=== PATIENT | female | born 1955 | race Caucasian/White ===

== ENCOUNTER → 2023-10-23 09:26 | Outpatient (REF) | payer MEDICARE, OTHER, SELFPAY ==
[2023-10-23 12:10] LABS: % Eosinophils 2.4 % (0-6); % Immature Granulocytes 0.2 % (0-0.5); % Lymphocytes 20.3 % (20.5-51.1); % Monocytes 10.3 % (1.7-9.3); % Neutrophils 65.8 % (42.2-75.2); ALT (SGPT) 18 U/L (0-35); AST (SGOT) 24 U/L (14-36); Absolute Basophils 0.1 10^3/uL (0-0.2); Absolute Eosinophils 0.2 10^3/uL (0-0.7); Absolute Lymphocytes 1.3 10^3/uL (1.2-3.4); Absolute Monocytes 0.6 10^3/uL (0.1-0.6); Absolute Neutrophils 4.1 10^3/uL (1.4-6.5); Albumin 4.3 g/dl (3.5-5.0); Alkaline Phosphatase 108 U/L (38-126); Blood Urea Nitrogen 19 mg/dl (7-17); Calcium 9.9 mg/dl (8.4-10.2); Carbon Dioxide 26 mmol/L (22-30); Chloride 101 mmol/L (98-107); Glucose 93 mg/dl (70-99); HDL Cholesterol 75 mg/dl; Hematocrit 39.1 % (37.0-47.0); Hemoglobin 12.1 g/dL (12.0-16.0); LDL Cholesterol, Calculated 99 mg/dl; Mean Corp Hgb Conc. 30.9 g/dL (33.0-37.0); Mean Corpuscular Hgb 24.7 pg (27.0-31.0); Nucleated Red Blood Cells % 0 %; Platelet Count 330 10^3/uL (130-400); Potassium 4.5 mmol/L (3.5-5.1); Red Blood Cell Count 4.89 10^6/uL (4.20-5.40); Red Cell Dist. Width 15.5 % (11.5-14.5); Sodium 137 mmol/L (135-145); Total Bilirubin 0.5 mg/dl (0.2-1.3); Total Cholesterol 193 mg/dl (50-199); Total Protein 7.3 g/dl (6.3-8.2); Triglyceride 95 mg/dl (10-149); Very Low Density Lipoprotein 19 mg/dl (0-30); White Blood Cell Count 6.2 10^3/uL (4.8-10.8); eGFR > 60.00
[2023-10-23 12:25] LABS: TSH 2.55 uIU/ml (0.47-4.68)
== END ==
LOC: HWLAB 09:26
PROVIDERS: ATTENDING PHYSICIAN Nurse Practitioner
DX: M25.511 Pain in right shoulder (principal); N32.81 Overactive bladder; E03.9 Hypothyroidism, unspecified; E78.5 Hyperlipidemia, unspecified; E66.01 Morbid (severe) obesity due to excess calories
CPT/HCPCS: 36415; 73030; 80053; 80061; 84443; 85025

== ENCOUNTER → 2023-11-05 10:42 | Outpatient (REF) | payer MEDICARE, OTHER, SELFPAY | LOC: PAVMRI 10:42 | PROVIDERS: ATTENDING PHYSICIAN Nurse Practitioner | DX: M25.511 Pain in right shoulder (principal) | CPT/HCPCS: 73221 ==

== ENCOUNTER → 2023-11-22 09:13 | Outpatient (REF) | payer MEDICARE, OTHER, SELFPAY | LOC: HWRAD 09:13 | PROVIDERS: ATTENDING PHYSICIAN Specialist; FAMILY PHYSICIAN Nurse Practitioner | DX: M25.511 Pain in right shoulder (principal); Z01.818 Encounter for other preprocedural examination | CPT/HCPCS: 73200 ==

== ENCOUNTER 2023-12-25 06:06 | Inpatient (IN) | payer MEDICARE, OTHER, SELFPAY ==
--- NOTE | 2023-11-21 11:08 | CM ---
Addendum entered by JAIR Reyes 12/11/23 14:28:
Patient called and now prefers [facility] home as first choice for SNF then [facility].
Original Note:
Patient is scheduled for an elective R Reverse TSA on 12/25/23. Spoke with patient prior to surgery. Patient has had multiple orthopedic surgeries at . Reintroduced role of Orthopedic Navigator. Patient reports that she lives with a friend in a two
story home. There is an elevator lift to enter and a flight of steps to the second floor. There is no first floor bathroom. She currently functions independently and uses a rollator. She is recovering from an ankle fracture which occurred in April
2022. She uses her UEs to stand up from chairs, her bed, etc. She also has a commode, raised toilet seat, shower seat, toilet rails and a hip kit. She has been in [facility] for rehab and has had services through [facility]. PCP is Cat Gilbert.
Discussed orthopedic program and post surgical plans. Reviewed anticipated length of stay and assistance that she may need at discharge. Patient states that she has no one who can help her. Discussed possible need for SNF and reviewed Medicare
guidelines. If SNF is needed she states that she would like to go to [facility] or [facility].
Patient will complete online education.
Plan: Orthopedic Navigator will be involved in the care of patient after surgery and will reassess discharge needs at that time.
[2023-12-07 08:16] VITALS: BMI 45.0
[2023-12-07 09:36] LABS: Hematocrit 38.4 % (37.0-47.0); Hemoglobin 11.8 g/dL (12.0-16.0); Mean Corp Hgb Conc. 30.7 g/dL (33.0-37.0); Mean Corpuscular Hgb 24.9 pg (27.0-31.0); Mean Corpuscular Volume 81.2 fL (81.0-99.0); Mean Platelet Volume 9.6 fL (7.4-10.4); Platelet Count 341 10^3/uL (130-400); Red Blood Cell Count 4.73 10^6/uL (4.20-5.40); Red Cell Dist. Width 14.9 % (11.5-14.5)
[2023-12-07 10:14] LABS: ALT (SGPT) 16 U/L (0-35); AST (SGOT) 23 U/L (14-36); Albumin 3.8 g/dl (3.5-5.0); Alkaline Phosphatase 93 U/L (38-126); Blood Urea Nitrogen 19 mg/dl (7-17); Calcium 9.8 mg/dl (8.4-10.2); Carbon Dioxide 25 mmol/L (22-30); Chloride 104 mmol/L (98-107); Estimated Creatinine Clearance 124 ml/min; Glucose 84 mg/dl (70-99); Potassium 4.7 mmol/L (3.5-5.1); Sodium 137 mmol/L (135-145); Total Bilirubin 0.5 mg/dl (0.2-1.3); Total Protein 6.8 g/dl (6.3-8.2); eGFR > 60.00
[2023-12-07 11:59] LABS: Glycohemoglobin (HgbA1c) 5.6 % (4.0-5.6)
[2023-12-07 14:39] LABS: Vitamin D, 25-OH*** 33.5 ng/mL (30-80)
[2023-12-10 08:37] VITALS: BMI 45.0
[2023-12-25] VITALS (17 sets, daily range): BP systolic 106–183; BP diastolic 64–100; PULSE 67; BMI 45.0
[2023-12-25] MEDS: TYLENOL 1000 MG PO (06:42)
[2023-12-25] MEDS: CELEBREX 200 MG PO (06:42)
[2023-12-25] MEDS: NORMOSOL-R 1000 IV (10:05)
[2023-12-25] MEDS: LIPITOR 10 MG PO (13:31)
[2023-12-25] MEDS: SYNTHROID 50 MCG PO (13:31)
[2023-12-25] MEDS: PROTONIX 40 MG PO (13:31)
[2023-12-25] MEDS: TYLENOL 650 MG PO ×4 (13:32→23:11)
[2023-12-25] MEDS: ULTRAM PO ×2 (13:32→19:40)
--- NOTE | 2023-12-25 15:59 | PTCARENOTE ---
Pt received into room 2109, pt not complaining of any pain at this time. Difficulty moving R hand after receiving spinal block. R radial pulse intact. Pt making needs known. Assessment documented on worklist. Admission completed. Call kelly within
reach. Pt makes needs known.
[2023-12-25] MEDS: ASPIRIN 325 MG PO (16:57)
[2023-12-25] MEDS: LEXAPRO 20 MG PO (16:57)
[2023-12-25] MEDS: ANCEF 5 IV ×2 (16:57→23:11)
[2023-12-25] MEDS: BACTROBAN 2% OINTMENT 1 APPLIC NASAL (19:49)
[2023-12-25] MEDS: SENOKOT 17.1999999999999993 MG PO (19:49)
[2023-12-25] MEDS: DECADRON 4 MG PO (19:49)
[2023-12-25] MEDS: COLACE 100 MG PO (19:49)
[2023-12-25] MEDS: BUSPAR 7.5 MG PO (19:49)
[2023-12-25] MEDS: DITROPAN 5 MG PO (19:50)
[2023-12-25] MEDS: TORADOL 15 MG IV (19:50)
[2023-12-25] MEDS: NEURONTIN 300 MG PO (21:31)
[2023-12-25] MEDS: ULTRAM 50 MG PO (21:31)
[2023-12-25] MEDS: MELATONIN 5 MG PO (21:33)
[2023-12-26] VITALS (8 sets, daily range): BP systolic 113–140; BP diastolic 57–90; PULSE 73; O2SAT 97
--- NOTE | 2023-12-26 03:38 | DOWNTIME ---
There was a [employer] Client Analytical Lab Analyst Downtime on 11/20/2023 from 0100 to 11/21/2023 at 0300. Downtime documentation of patient's care, including medication administrations, has been reconciled in the electronic record per guidelines. Refer to the
patient's paper chart under the miscellaneous tab to see printed paper medication records and downtime forms.
[2023-12-26] MEDS: TYLENOL PO (04:58)
[2023-12-26] MEDS: SYNTHROID 50 MCG PO (06:06)
--- NOTE | 2023-12-26 08:23 | CM ---
Reviewed chart and held rounds with OT and nursing. Patient admitted as planned for elective R Reverse TSA. Met with patient at bedside. Confirmed information previously obtained for case management assessment and discussed discharge plans. patient
continues to state that she needs to go to a SNF. Explained that we will see how she does in therapy today and further discuss discharge plans. She continues to select [facility] or [facility] if she needs SNF.
Referral and completed PASRR were sent to [facility] and [facility]. Will await response with their ability to accept patient.
[2023-12-26] MEDS: SENOKOT 17.1999999999999993 MG PO ×2 (08:41→20:09)
[2023-12-26] MEDS: PROTONIX 40 MG PO (08:41)
[2023-12-26] MEDS: BACTROBAN 2% OINTMENT 1 APPLIC NASAL ×2 (08:41→22:46)
[2023-12-26] MEDS: ASPIRIN 325 MG PO (08:41)
[2023-12-26] MEDS: DECADRON 4 MG PO ×2 (08:42→20:08)
[2023-12-26] MEDS: COLACE 100 MG PO ×2 (08:42→20:08)
[2023-12-26] MEDS: MOBIC 15 MG PO (08:42)
[2023-12-26] MEDS: TYLENOL 650 MG PO ×5 (08:42→23:50)
[2023-12-26] MEDS: TORADOL 15 MG IV ×2 (08:43→20:09)
[2023-12-26] MEDS: LIPITOR 10 MG PO (08:43)
[2023-12-26] MEDS: COZAAR PO (08:43)
[2023-12-26] MEDS: BUSPAR 7.5 MG PO ×2 (08:44→20:08)
[2023-12-26] MEDS: ULTRAM 50 MG PO ×3 (08:44→22:09)
[2023-12-26] MEDS: DITROPAN 5 MG PO ×2 (08:44→20:09)
[2023-12-26] MEDS: FEOSOL 325 MG PO (08:44)
[2023-12-26] MEDS: ULTRAM PO (12:23)
[2023-12-26] MEDS: LEXAPRO 20 MG PO (17:39)
[2023-12-26] MEDS: NEURONTIN 300 MG PO (22:09)
[2023-12-26] MEDS: DULCOLAX 10 MG RECTAL (22:31)
[2023-12-26] MEDS: BACTROBAN 2% OINTMENT NASAL ×2 (22:31→22:46)
--- NOTE | 2023-12-27 | PTCARENOTE ---
Dulcolax suppository given with positive results. pt reported feeling like she 'still needs to explode', however, gas pains have resolved. assessment ongoing.
[2023-12-27] MEDS: TYLENOL PO (05:00)
[2023-12-27] MEDS: SYNTHROID 50 MCG PO (05:44)
[2023-12-27 07:05] VITALS: BP 152/89
--- NOTE | 2023-12-27 08:36 | CM ---
Addendum entered by Rosa Turner 12/27/23 11:31:
Spoke with Tiburcio at [facility] ([phone]). He confirms that they will have a bed for patient tomorrow and requested a call tomorrow morning.
Addendum entered by Rosa Turner 12/27/23 10:08:
Spoke with Haley at [facility]. She said she won't know until tomorrow morning whether she can accept patient. Navigator to follow up with Haley in AM. Patient updated.
Original Note:
Reviewed chart and held rounds with PT, OT and nursing. Met with patient at bedside. Discussed discharge plans. Patient continues to state that she needs to go to a SNF. She continues to select [facility] or [facility] Discussed wheel chair van
transport and patient is agreeable to paying related charges.
[facility] is able to offer a bed. Message was sent to [facility] to see if they can accept patient.
[2023-12-27] MEDS: ULTRAM 50 MG PO ×4 (09:14→22:22)
[2023-12-27] MEDS: COZAAR 50 MG PO (09:14)
[2023-12-27] MEDS: SENOKOT 17.1999999999999993 MG PO (09:14)
[2023-12-27] MEDS: COLACE 100 MG PO (09:14)
[2023-12-27] MEDS: PROTONIX 40 MG PO (09:14)
[2023-12-27] MEDS: TYLENOL 650 MG PO ×4 (09:14→19:56)
[2023-12-27] MEDS: ASPIRIN 325 MG PO (09:15)
[2023-12-27] MEDS: FEOSOL 325 MG PO (09:15)
[2023-12-27] MEDS: DECADRON 4 MG PO ×2 (09:15→19:56)
[2023-12-27] MEDS: MOBIC 15 MG PO (09:15)
[2023-12-27] MEDS: LIPITOR 10 MG PO (09:15)
[2023-12-27] MEDS: BUSPAR 7.5 MG PO ×2 (09:15→19:56)
[2023-12-27] MEDS: DITROPAN 5 MG PO ×2 (09:16→19:56)
[2023-12-27] MEDS: ROXICODONE 10 MG PO ×2 (11:41→21:16)
--- NOTE | 2023-12-27 13:07 | W.PN.ORTHO ---
Today's Communication / Plan
-
d/c am if stable
Assessment
.
Distal Motor Intact: Yes
Dressing:
Clean, dry and intact.
Plan
.
Surgery / Date: R Karie Burger 12/25/23
DVT Prophylaxis: Aspirin
Activity:
Out of bed.
PT/OT
Discharge Plan: SNF
Subjective
.
.:
Patient resting comfortably.
Vital Signs and Labs
.
Vital Signs and Labs:
Lab Results
12/07/23 08:13
12/07/23 08:13
Temp Pulse Resp BP Pulse Ox
98.3 F 68 17 152/89 96
12/27/23 07:05 12/27/23 07:05 12/27/23 07:05 12/27/23 07:05 12/27/23 07:05
Non-invasive Hgb result: 12.9
Physical Exam
-
HEENT: No pallor, cyanosis, or jaundice. Throat clear.
NECK: Supple. No JVD.
RESPIRATORY: Lungs clear to auscultation.
CVS: S1, S2 normal. RRR.� No murmur, rub or gallop.
ABDOMEN: Soft, non-tender. No distension. BS+/normal.
EXTREMITIES: strength equal, no calf pain with palpation
HEAD OF DRAMA: AOx3. No focal deficits. hose turner grossly intact
[2023-12-27 15:00] VITALS: BP 138/78
[2023-12-27] MEDS: LEXAPRO 20 MG PO (17:58)
[2023-12-27] MEDS: NEURONTIN 300 MG PO (21:16)
[2023-12-27 23:31] VITALS: BP 115/83
[2023-12-28] MEDS: TYLENOL PO (01:27)
[2023-12-28] MEDS: TYLENOL 650 MG PO ×3 (05:00→12:58)
[2023-12-28] MEDS: SYNTHROID 50 MCG PO (05:21)
[2023-12-28 07:17] VITALS: BP 142/94
[2023-12-28] MEDS: LIPITOR 10 MG PO (08:48)
[2023-12-28] MEDS: MOBIC 15 MG PO (08:48)
[2023-12-28] MEDS: DITROPAN 5 MG PO (08:49)
[2023-12-28] MEDS: COZAAR 50 MG PO (08:49)
[2023-12-28] MEDS: ULTRAM 50 MG PO ×2 (08:49→12:59)
[2023-12-28] MEDS: BUSPAR 7.5 MG PO (08:49)
[2023-12-28] MEDS: DECADRON 4 MG PO (08:49)
[2023-12-28] MEDS: PROTONIX 40 MG PO (08:49)
[2023-12-28] MEDS: ASPIRIN 325 MG PO (08:50)
[2023-12-28] MEDS: FEOSOL 325 MG PO (08:50)
--- NOTE | 2023-12-28 09:30 | CM ---
Addendum entered by JAIR Reyes 12/28/23 12:11:
CoVID tested requested by SNF prior to d/c. updated patient ambulance company sending w/c van at 1500 . also updated SNF admissions with new oyster picker time.
Addendum entered by JAIR Reyes 12/28/23 11:00:
confirm w/c van ride set up for 1630. Updated Haley at [facility] with time of oyster picker. Also updated patient who was on phone with Acute care to use credit card to pay.
Original Note:
Reviewed chart and held rounds with PT, OT and nursing. Met with patient at bedside. Discussed discharge plans. Patient continues to state that she needs to go to a SNF. She continues to select [facility] or [facility]. Discussed wheel chair van
transport and patient is agreeable to paying related charges. Call received from Haley in admissions at [facility] that she has bed for patient. SHe can accept her at 1500 today.
Met with patient who is agreeable to plan. She will call her friends and family to notify. She knows she has to call w/c [employer] to pay with credit card for the transport.
Navigator called [facility] and left VM for windows systems administrator that bed not needed.
[facility] : report [phone], FAX [phone].
--- NOTE | 2023-12-28 10:42 | W.PN.ORTHO ---
Today's Communication / Plan
-
d/c
Assessment
.
Distal Motor Intact: Yes
Dressing:
Clean, dry and intact.
Plan
.
Surgery / Date: R Karie Burger 12/25/23
DVT Prophylaxis: Aspirin
Activity:
Out of bed.
PT/OT
Discharge Plan: SNF
Subjective
.
.:
Patient resting comfortably.
Vital Signs and Labs
.
Vital Signs and Labs:
Lab Results
12/07/23 08:13
12/07/23 08:13
Temp Pulse Resp BP Pulse Ox
98.9 F 77 17 142/94 96
12/28/23 07:17 12/28/23 07:17 12/28/23 07:17 12/28/23 07:17 12/28/23 07:17
Non-invasive Hgb result: 12
Physical Exam
-
HEENT: No pallor, cyanosis, or jaundice. Throat clear.
NECK: Supple. No JVD.
RESPIRATORY: Lungs clear to auscultation.
CVS: S1, S2 normal. RRR.� No murmur, rub or gallop.
ABDOMEN: Soft, non-tender. No distension. BS+/normal.
EXTREMITIES: strength equal, no calf pain with palpation
LIBRARY CIRCULATION DEPARTMENT CHIEF: AOx3. No focal deficits. shift stacker grossly intact
--- NOTE | 2023-12-28 10:45 | W.DS.TRANS ---
DC Summary - Medical Historian
-
Discharge Instructions:
Sleep Apnea Risk Intermediate
Discharge Diagnosis/Procedures R Reverse TSA Dr. Burger 12/25/23
Diet As tolerated
Activity No strenuous activity
Driving Restrictions No driving
Instructions:
Stand-Alone Forms: Total Shoulder Replacement D/C
Changes to Home Medications: Yes
Discharge Medications:
DC Medications w/original date entered in [employer]
levothyroxine 50 mcg tablet 50 mcg PO DAILY Thyroid 04/28/21
simvastatin 20 mg tablet 20 mg PO DAILY High cholesterol 04/28/21
escitalopram oxalate 20 mg tablet 20 mg PO QPM Mental Health/Anxiety 11/01/22
omeprazole 40 mg capsule,delayed release 40 mg PO DAILY Gastrointestinal Issue 11/01/22
losartan 50 mg tablet 50 mg PO DAILY Blood Pressure 04/18/23
oxybutynin chloride 10 mg tablet,extended release 24 hr 10 mg PO QPM Urinary Issue 04/18/23
buspirone 7.5 mg tablet 7.5 mg PO BID Depression 12/04/23
mupirocin 2 % topical ointment 1 applic topical BID infection prevention #1 tube 12/07/23
ferrous sulfate 325 mg (65 mg iron) tablet,delayed release 325 mg PO DAILY Supplement 12/25/23
Saccharomyces boulardii 250 mg capsule (Florastor) 250 mg PO BID #1 cap 12/26/23
acetaminophen 325 mg capsule (Tylenol) 650 mg (2 x 325 mg) PO QID #2 caps 12/26/23
acetaminophen 500 mg tablet (Pain Relief Extra Strength (acetaminophen)) 1,000 mg (2 x 500 mg) PO QID pain #0 tabs 12/26/23
aspirin 325 mg tablet 325 mg PO DAILY blood clot prevention #1 tab 12/26/23
dexamethasone 4 mg tablet 4 mg PO BID inflammation #6 tabs 12/26/23
docusate sodium 100 mg capsule (Colace) 100 mg PO BID stool softner #1 cap 12/26/23
doxycycline hyclate 100 mg capsule 100 mg PO BID infection prevention #10 caps 12/26/23
ergocalciferol (vitamin D2) 50 mcg (2,000 unit) capsule 50 mcg PO WEEKLY vit D deficiency #20 caps 12/26/23
gabapentin 300 mg capsule 300 mg PO HS sleep/pain #10 caps 12/26/23
magnesium hydroxide 400 mg/5 mL oral suspension (Milk of Magnesia) 30 ml PO HS PRN Constipation #1 mL 12/26/23
meloxicam 15 mg tablet 15 mg PO DAILY anti-inflammatory #14 tabs 12/26/23
oxycodone 5 mg tablet 5 mg PO Q6H PRN 1 tab moderate pain, 2 tabs severe pain #30 tabs 12/26/23
sennosides 8.6 mg tablet (Senokot) 17.2 mg (2 x 8.6 mg) PO BID laxative #2 tabs 12/26/23
Home Medication Changes
dexamethasone 4 mg tablet 4 mg PO BID inflammation #6 tabs 12/26/23�
docusate sodium 100 mg capsule (Colace) 100 mg PO BID stool softner #1 cap 12/26/23�
doxycycline hyclate 100 mg capsule 100 mg PO BID infection prevention #10 caps 12/26/23�
ergocalciferol (vitamin D2) 50 mcg (2,000 unit) capsule 50 mcg PO WEEKLY vit D deficiency #20 caps 12/26/23�
gabapentin 300 mg capsule 300 mg PO HS sleep/pain #10 caps 12/26/23�
magnesium hydroxide 400 mg/5 mL oral suspension (Milk of Magnesia) 30 ml PO HS PRN Constipation #1 mL 12/26/23�
meloxicam 15 mg tablet 15 mg PO DAILY anti-inflammatory #14 tabs 12/26/23�
oxycodone 5 mg tablet 5 mg PO Q6H PRN 1 tab moderate pain, 2 tabs severe pain #30 tabs 12/26/23�
Pending Results: No
[2023-12-28 13:01] VITALS: BP 149/77; PULSE 64; O2SAT 97
[2023-12-28 13:07] LABS: COVID-19 Antigen Negative (Negative)
[2023-12-28 14:28] VITALS: BP 138/86
== END 2023-12-28 15:00 | DRG 483 ==
LOC: 2 SOUTH 06:06
PROVIDERS: Physician Assistant Medical; ADMITTING PHYSICIAN Specialist; FAMILY PHYSICIAN Nurse Practitioner
PROC: 0RRJ00Z Replacement of Right Shoulder Joint with Reverse Ball and Socket Synthetic Substitute, Open Approach (ICD-10-PCS; 2023-12-25)
PROC: 0LS30ZZ Reposition Right Upper Arm Tendon, Open Approach (ICD-10-PCS; 2023-12-25)
DX: M19.011 Primary osteoarthritis, right shoulder (principal); Z68.41 Body mass index [BMI] 40.0-44.9, adult; I10 Essential (primary) hypertension; E78.5 Hyperlipidemia, unspecified; G43.909 Migraine, unspecified, not intractable, without status migrainosus; I87.2 Venous insufficiency (chronic) (peripheral); E03.9 Hypothyroidism, unspecified; N32.81 Overactive bladder; F32.A Depression, unspecified; F41.9 Anxiety disorder, unspecified; E66.01 Morbid (severe) obesity due to excess calories; Z96.641 Presence of right artificial hip joint; Z96.653 Presence of artificial knee joint, bilateral; Z87.891 Personal history of nicotine dependence; Z79.890 Hormone replacement therapy; Z11.52 Encounter for screening for COVID-19
CPT/HCPCS: 36415; 73020; 80053; 82306; 83036; 85027; 86850; 86900; 86901; 87070; 87811; 93005; 97110; 97116; 97162; 97167; 97535

== ENCOUNTER → 2024-04-08 06:40 | Outpatient (REF) | payer MEDICARE, OTHER, SELFPAY ==
[2024-04-08 09:09] LABS: Blood Urea Nitrogen 23 mg/dl (7-17); Calcium 9.9 mg/dl (8.4-10.2); Carbon Dioxide 29 mmol/L (22-30); Chloride 101 mmol/L (98-107); Glucose 99 mg/dl (70-99); Potassium 4.6 mmol/L (3.5-5.1); Sodium 141 mmol/L (135-145); eGFR > 60.00
== END ==
LOC: HWRCS 06:40
PROVIDERS: ATTENDING PHYSICIAN Hospitalist
DX: R60.0 Localized edema (principal)
CPT/HCPCS: 36415; 80048; 93306

== ENCOUNTER 2024-04-28 15:54 | Emergency (ER) | payer MEDICARE, OTHER, SELFPAY ==
[2024-04-28 15:59] VITALS: BP 150/99
[2024-04-28] MEDS: CARDIZEM 10 MG IV (16:41)
[2024-04-28] MEDS: NSS 1000 IV (16:41)
[2024-04-28 16:47] LABS: % Basophils 0.9 % (0-2); % Eosinophils 2.4 % (0-6); % Immature Granulocytes 0.3 % (0-0.5); % Lymphocytes 21.7 % (20.5-51.1); % Monocytes 11.6 % (1.7-9.3); % Neutrophils 63.1 % (42.2-75.2); Absolute Basophils 0.1 10^3/uL (0-0.2); Absolute Eosinophils 0.2 10^3/uL (0-0.7); Absolute Lymphocytes 1.6 10^3/uL (1.2-3.4); Absolute Monocytes 0.9 10^3/uL (0.1-0.6); Absolute Neutrophils 4.7 10^3/uL (1.4-6.5); Hematocrit 38.1 % (37.0-47.0); Hemoglobin 12.1 g/dL (12.0-16.0); Mean Corp Hgb Conc. 31.8 g/dL (33.0-37.0); Mean Corpuscular Hgb 25.6 pg (27.0-31.0); Mean Corpuscular Volume 80.7 fL (81.0-99.0); Mean Platelet Volume 9.3 fL (7.4-10.4); Nucleated Red Blood Cells % 0 %; Platelet Count 311 10^3/uL (130-400); Red Blood Cell Count 4.72 10^6/uL (4.20-5.40); Red Cell Dist. Width 13.8 % (11.5-14.5); White Blood Cell Count 7.5 10^3/uL (4.8-10.8)
--- NOTE | 2024-04-28 17:06 | ED.GENMED ---
Addendum entered and electronically signed by Suma Jones PA-C 04/29/24 10:13:
04/29/2024
I was notified that patient's pharmacy no longer was serving her and that she would need her prescription sent to new pharmacy. I called patient to clarify and she states that she actually uses [facility] on [address] [place] [address]. I did send these
prescriptions to this new pharmacy. Patient states that she has been using this pharmacy for many years. Did call the pharmacy and confirmed that the prescriptions were sent and accepted. Patient states that she will be picking up her
prescriptions today.
Original Note:
History of Present Illness
General
Chief Complaint: Heart Rate Problem
Source: patient
Exam Limitations: none
Time Seen by Provider: 04/28/24 16:28
Nursing documentation reviewed up to this point in time: agreed with
History of Present Illness
History of Present Illness:
69-year-old female with past medical history of hypertension, hyperlipidemia, hypothyroidism, obesity who presents to the emergency department for evaluation of atrial fibrillation. Patient has had multiple orthopedic surgeries recently most recent
was shoulder surgery in December. She was referred to game programmer/diet specialist by orthopedics for help with weight loss. Today she went for a full physical exam and was found to be tachycardic and an EKG showed atrial fibrillation. She has no
history of atrial fibrillation or any other cardiac issues of which she is aware. She says she has never seen a l d rn. Her main symptom is shortness of breath which she says has been ongoing for the past few months and is relatively mild
and mainly with exertion. She has not noticed any chest pain. She has not noticed any palpitations. She denies any dizziness. She has had some swelling in the legs which she says was symmetric and was treated by her primary care physician with
Lasix and seems to have improved greatly. She denies any other complaints. She has no history of DVT/PE.
Past History
Past History
ED Past Medical History: Other (knee problems )
Social History
Tobacco: Non-smoker
Personal:
Review of Systems
Review of Systems
All Other Systems: ROS reviewed and negative except as documented in HPI and ROS
Constitutional: Denies fever or chills
Respiratory: Reports trouble breathing; Denies cough
Cardiac: Denies chest pain, palpitations or syncope
ABD/GI: Denies abdominal pain, nausea or vomiting
: Denies flank pain
Musculoskeletal: Reports edema; Denies neck pain or back pain
Neurological: Denies dizzy or headache
Phy Exam
Physical Exam
Physical Exam:
General: Awake, alert, oriented x3; no acute distress
Head: Normocephalic, atraumatic
Eyes: Conjunctiva normal, sclera anicteric
Throat: Airway intact, handling secretions
Neck: Trachea midline, supple without meningismus
Lungs: Clear to auscultation bilaterally, no wheezing, rales, rhonchi
Heart: Tachycardia with irregularly irregular rhythm, no murmurs, gallops, or rubs appreciated
Abd: Soft, non distended, nontender
Neuro: No gross deficits
Extremities: Mild edema bilateral lower extremities, no calf tenderness, no skin changes in the lower extremities, equal pulses all extremities
Scores
[id number] Score for Afib Stroke Risk
Age in Years (65=0, 65-74=1, >/=75=2): 65-74
Sex (Female=+1): Female
Congestive Heart Failure History (Yes=+1): No
Hypertension History (Yes=+1): Yes
Stroke/TIA/Thromboembolism History (Yes=+2): No
Vascular Disease History (Yes=+1): No
Diabetes Mellitus (Yes=+1): No
Score: 3
Anticoagulation Recommendations: Recommend anticoagulation (as validated in nonvalvular fib)
Heart Failure Risk
Heart Failure Risk Score: Not Applicable
Heart Score for Chest Pain Patients
STEMI patient?: Not applicable
Withdrawal Assessment of Alcohol
Withdrawal Assessment Completed?: Not applicable
Course
Orders/Labs/Results
Orders:
Orders
04/28/24 15:57
ECG [Electrocardiogram (*1)] Urgent
Reason for Study: Atrial Fibrillation
EKG- Treatment ONCE
04/28/24 16:06
Electrocardiogram (*1) Urgent
Reason for Study: Chest Pain
EKG- Treatment ONCE
04/28/24 16:32
0.9% Sodium Chloride 1000 ml [Nss] 1,000 ml IV BOLUS
Diltiazem HCl [Cardizem] 10 mg IV NOW STA
04/28/24 16:34
Complete Blood Count/With Diff Urgent
Comprehensive Metabolic Panel Urgent
TSH Reflex To Free T4 Urgent
04/28/24 16:55
CT Chest Pe Study Urgent
Comment:
Reason For Exam: SOB, tachycardia, recent surgery
Metoprolol Xl [Toprol Xl] 25 mg PO NOW STA
04/28/24 21:21
Metoprolol Xl [Toprol Xl] 25 mg PO NOW STA
04/28/24 21:22
Apixaban [Eliquis] 5 mg PO ONCE ONE
04/29/24 21:30
Apixaban [Eliquis] 5 mg PO ONCE ONE
Abnormal Lab Results
04/28/24
16:34
MCV 80.7 L fL
(81.0-99.0)
MCH 25.6 L pg
(27.0-31.0)
MCHC 31.8 L g/dL
(33.0-37.0)
Absolute Monos (auto) 0.9 H 10^3/uL
(0.1-0.6)
Monocytes % 11.6 H %
(1.7-9.3)
Glucose 111 H mg/dl
(70-99)
04/28/24 16:34
04/28/24 16:34
Vital Signs
Initial and Last Documented VS:
Initial Vital Signs
Temp Pulse Resp BP Pulse Ox
36.8 C 130 20 150/99 97
04/28/24 15:59 04/28/24 15:59 04/28/24 15:59 04/28/24 15:59 04/28/24 15:59
Last Documented Vital Signs
Temp Pulse Resp BP Pulse Ox
36.8 C 108 18 134/108 96
04/28/24 15:59 04/28/24 21:40 04/28/24 21:00 04/28/24 20:00 04/28/24 21:00
MDM/Problems Addressed
Differential Diagnosis Includes:
Shortness of breath: Symptomatic A-fib, anemia, PE, CHF, deconditioning/obesity
MDM/Problems Addressed:
69-year-old female presents to the emergency room referred by diet specialist after she was found to have new onset A-fib with RVR during routine physical. She has been having some increased shortness of breath over the past few months. Heart rate
130s, mildly hypertensive, respiratory rate and pulse ox acceptable, afebrile. Physical exam as above. Her EKG confirms A-fib with RVR. She has no known history of this. Will place an IV and send labs including a CBC and a CMP, thyroid studies.
I do think she warrants workup to rule out PE as cause for her increased shortness of breath and new onset dysrhythmia given recent leg swelling, history of obesity and multiple orthopedic procedures within the past 12 months. Will send for CTA
chest. Will treat with IV diltiazem for rate control. Reassess after the above.
Patient is rate improved to the 80s with diltiazem. Will provide p.o. Toprol to maintain rate control. Awaiting rest of workup.
CTA shows no signs of PE and there was questionable mild pulmonary edema�she has no rales on exam, normal pulse ox and respiratory rate. While she has had some shortness of breath she says that symptoms are no worse today than they have been for
the past few months. Here she has controlled heart rate and blood pressure. No clear indication for admission, can give dose of IV Lasix 40mg here. I did discuss with cardiology regarding new onset A-fib with RVR now rate controlled. They are
recommending treatment with Eliquis for anticoagulation and initiating Toprol-XL at a dose of 50 mg daily rather than 25 mg daily. Will provide additional dose of Toprol here. Will dose with Eliquis. I had a long discussion with the patient. I
did offer her admission for monitoring since this is new onset A-fib but she feels comfortable with discharge and close cardiology follow-up. We did speak about monitoring her heart rate at home and returning with elevated rates or any significant
symptoms. She feels very comfortable with this. All questions answered.
Chronic conditions affecting care:
Obesity, hypertension, hyperlipidemia
Acute Exacerbation and/or Progression of Chronic Illness:
Acutely hypertensive�treated with Toprol to help with rate control, also help with blood pressure
*Radiology
Radiology exam reviewed: radiology read reviewed
*Pulse Oximetry
Patient hypoxic: no
*EKG
Interpreted by ED Provider?: Yes
Heart Rate: 130
Rate: tachycardiac
Rhythm: a-fib
[place]: left axis deviation
Interval: normal interval
QRS Pattern: normal QRS
Ischemia: non-specific ST changes
*Critical Care Note
Total Time (30-74mins, 75-104mins- exclusive of procedures): Not Applicable
Data Reviewed
Source: patient
ED Attending Note
-
Portions of this chart may have been created with voice recognition software.� Occasional wrong word or��sound alike� substitutions may have occurred due to the inherent limitations of voice recognition software.
Discharge Plan
Departure
Patient with high blood pressure during this ER visit?: Yes
Discharge Problem:
Atrial fibrillation
Instructions: Atrial Fibrillation (DC)
Prescriptions:
New
Eliquis 5 mg tablet
5 mg PO BID 30 Days Qty: 60 0RF
metoprolol succinate [Toprol XL] 25 mg tablet extended release 24 hr
25 mg PO DAILY Qty: 30 0RF
No Action
levothyroxine 50 MCG tablet
50 mcg PO DAILY
simvastatin 20 MG tablet
20 mg PO DAILY
omeprazole 40 mg Capsule,Delayed Release(Dr/Ec)
40 mg PO DAILY
escitalopram oxalate 20 mg Tablet
20 mg PO QPM
losartan 50 mg Tablet
50 mg PO DAILY
oxybutynin chloride 10 mg Tablet Extended Release 24hr
10 mg PO QPM
buspirone 7.5 mg Tablet
7.5 mg PO BID
mupirocin 2 % ointment
1 applic topical BID Qty: 1 0RF
Patient Comments:
started treatment sunday12/22/23 and completed BID, last took at home 12/25/23 in am
ferrous sulfate 325 mg (65 mg iron) Tablet,Delayed Release (Dr/Ec)
325 mg PO DAILY
acetaminophen [Pain Relief ES (acetaminophen)] 500 mg tablet
1,000 mg PO QID Qty: 0 0RF
doxycycline hyclate 100 mg capsule
100 mg PO BID Qty: 10 0RF
Rx Instructions:
Take with probiotic
aspirin 325 mg tablet
325 mg PO DAILY Qty: 1 0RF
Rx Instructions:
Take with food
meloxicam 15 mg tablet
15 mg PO DAILY Qty: 14 0RF
Rx Instructions:
take with food
post-op
dexamethasone 4 mg tablet
4 mg PO BID Qty: 6 0RF
Rx Instructions:
take with food
post-op use only
docusate sodium [Colace] 100 mg capsule
100 mg PO BID Qty: 1 0RF
gabapentin 300 mg capsule
300 mg PO HS Qty: 10 0RF
Saccharomyces boulardii [Florastor] 250 mg capsule
250 mg PO BID Qty: 1 0RF
magnesium hydroxide [Milk of Magnesia] 400 mg/5 mL suspension
30 ml PO HS PRN (Reason: Constipation) Qty: 1 0RF
oxycodone 5 mg tablet
5 mg PO Q6H PRN (Reason: 1 tab moderate pain, 2 tabs severe pain) Qty: 30 0RF
Rx Instructions:
Ongoing therapy
acetaminophen [Tylenol] 325 mg capsule
650 mg PO QID Qty: 2 0RF
ergocalciferol (vitamin D2) 50 mcg (2,000 unit) capsule
50 mcg PO WEEKLY Qty: 20 0RF
Referrals:
Artem Becerra MD [Active] - Call in 1-3 days for appt
Cat Gilbert CRNP [Family Provider] -
Activity Restrictions/Additional Instructions:
Thank you for visiting the Emergency Department at [facility].
1. Please schedule a follow up appointment as directed. Call first thing tomorrow morning to make an appointment.
2. If indicated, please take your medications as instructed and indicated on discharge paperwork.
3. If any of your symptoms do not improve, or persist, or become more severe within 6-12 hours, please return to the emergency department for further care.
4. Please return to the emergency department if you develop a headache, neck pain/stiffness, fever greater than 100.4F, chest pain, shortness of breath, persistent nausea, vomiting, slurred speech, difficulty walking, numbness/tingling, weakness,
signs of infection or any other symptoms that are worrisome to you.
Please call [phone] if you have any questions.
Interventions
Interventions:
*Risk Screen - Suicide Last Done: 04/28/24 15:59
*General Assessment Last Done: 04/28/24 15:59
*Neglect/Abuse Screening Last Done: 04/28/24 15:59
ED- Cardiac Assessment Last Done: 04/28/24 17:10
ED- Pulmonary Assessment Last Done: 04/28/24 17:10
Discharge Date and Time
Print Language: [email or web address]
[2024-04-28] MEDS: TOPROL XL 25 MG PO ×2 (17:07→21:40)
[2024-04-28 17:13] LABS: ALT (SGPT) 19 U/L (0-35); AST (SGOT) 25 U/L (14-36); Albumin 3.9 g/dl (3.5-5.0); Alkaline Phosphatase 91 U/L (38-126); Blood Urea Nitrogen 12 mg/dl (7-17); Calcium 9.6 mg/dl (8.4-10.2); Carbon Dioxide 25 mmol/L (22-30); Chloride 104 mmol/L (98-107); Glucose 111 mg/dl (70-99); Sodium 140 mmol/L (135-145); Total Bilirubin 0.4 mg/dl (0.2-1.3); Total Protein 6.5 g/dl (6.3-8.2); eGFR > 60.00
[2024-04-28 18:00] VITALS: BP 163/126
[2024-04-28 18:00] LABS: TSH Reflex To Free T4 1.62 uIU/ml (0.47-4.68)
[2024-04-28 19:24] VITALS: BP 127/87
[2024-04-28 20:00] VITALS: BP 134/108
[2024-04-28] MEDS: ELIQUIS 5 MG PO ×2 (21:40→22:07)
[2024-04-28] MEDS: LASIX 40 MG IV (22:07)
== END 2024-04-28 22:20 | disposition home or self-care (01) ==
LOC: EMR 15:54
PROVIDERS: Registered Nurse; EMERGENCY PHYSICIAN Emergency Medicine; FAMILY PHYSICIAN Nurse Practitioner
DX: I48.91 Unspecified atrial fibrillation (principal); I10 Essential (primary) hypertension; E78.00 Pure hypercholesterolemia, unspecified; E03.9 Hypothyroidism, unspecified; Z79.01 Long term (current) use of anticoagulants
CPT/HCPCS: 99284; 96374; 96375; 96361; 71275; 80053; 84443; 85025; 93005; Q9967

== ENCOUNTER → 2024-05-07 11:16 | Outpatient (REF) | payer MEDICARE, OTHER, SELFPAY | LOC: HWLAB 11:16 | PROVIDERS: ATTENDING PHYSICIAN Nurse Practitioner | DX: K52.9 Noninfective gastroenteritis and colitis, unspecified (principal) | CPT/HCPCS: 87045; 87046; 87324; 87328; 87329; 87427; 87449 ==

== ENCOUNTER 2024-09-21 16:52 | Emergency (ER) | payer MEDICARE, OTHER, SELFPAY ==
[2024-09-21 16:56] VITALS: BP 125/77; BMI 45.7
[2024-09-21 16:57] VITALS: BP 125/77
[2024-09-21 17:19] LABS: % Basophils 0.4 % (0-2); % Eosinophils 0.1 % (0-6); % Immature Granulocytes 0.3 % (0-0.5); % Lymphocytes 3.4 % (20.5-51.1); % Neutrophils 92.8 % (42.2-75.2); Absolute Lymphocytes 0.3 10^3/uL (1.2-3.4); Absolute Monocytes 0.2 10^3/uL (0.1-0.6); Absolute Neutrophils 6.8 10^3/uL (1.4-6.5); Hemoglobin 14.4 g/dL (12.0-16.0); Mean Corp Hgb Conc. 32.7 g/dL (33.0-37.0); Mean Corpuscular Hgb 26.5 pg (27.0-31.0); Mean Corpuscular Volume 80.9 fL (81.0-99.0); Mean Platelet Volume 9.1 fL (7.4-10.4); Nucleated Red Blood Cells % 0 %; Platelet Count 272 10^3/uL (130-400); Red Blood Cell Count 5.44 10^6/uL (4.20-5.40); Red Cell Dist. Width 14.6 % (11.5-14.5); White Blood Cell Count 7.4 10^3/uL (4.8-10.8)
[2024-09-21 17:28] LABS: ALT (SGPT) 34 U/L (0-35); AST (SGOT) 38 U/L (14-36); Albumin 4.3 g/dl (3.5-5.0); Alkaline Phosphatase 116 U/L (38-126); Blood Urea Nitrogen 27 mg/dl (7-17); Calcium 9.6 mg/dl (8.4-10.2); Carbon Dioxide 20 mmol/L (22-30); Chloride 105 mmol/L (98-107); Estimated Creatinine Clearance 113 ml/min; Glucose 161 mg/dl (70-99); Lipase 42 U/L (23-300); Potassium 4.4 mmol/L (3.5-5.1); Sodium 136 mmol/L (135-145); Total Bilirubin 0.7 mg/dl (0.2-1.3); Total Protein 7.5 g/dl (6.3-8.2); eGFR > 60.00
--- NOTE | 2024-09-21 17:51 | ED.GENMED ---
Addendum entered and electronically signed by Pantera Rucker DO 09/21/24 19:34:
Update patient feeling better overall still feels a bit nauseous with a headache will try some ice chips Tylenol
Original Note:
History of Present Illness
General
Chief Complaint: Abdominal Symptoms
Source: patient
Exam Limitations: none
Time Seen by Provider: 09/21/24 17:31
Nursing documentation reviewed up to this point in time: agreed with
History of Present Illness
History of Present Illness:
69-year-old female 4 months of diarrhea seen by her PCP multiple workups blood work lab work stool culture scheduled to see GI tomorrow with Hay[facility] Somm[facility]iew correction from the nurses note, today around 330 started vomiting EMS was called
sound like she got some Zofran or other antiemetic notes feeling better no abdominal pain no fevers no bloody stools no foreign travel no antibiotic use, no prior abdominal surgery
Past History
Past History
ED Past Medical History: Other (knee problems )
Social History
Tobacco: Non-smoker
Drug: None
Personal:
Living: with family
Employment: Retired
Phy Exam
Physical Exam
Physical Exam:
Physical Exam
General: no apparent distress, not acutely ill
Neck: Dry lips
Heart: s1/s2 regular rate and rhythm, no murmur. equal radial pulses.
Lungs: no acute respiratory distress. clear bilaterally
Abdomen: Distended nontender
Neuro: alert and oriented. no focal neurological deficits
Skin: no rash
Psychiatric: well kept. interactive and cooperative
Extremities: no edema.
Course
Orders/Labs/Results
Orders:
Orders
09/21/24 17:08
Complete Blood Count/With Diff Urgent
Comprehensive Metabolic Panel Urgent
Lipase Urgent
09/21/24 17:46
Norovirus by PCR Urgent
ROXANE Source: Feces/Stool
Specimen Description:
STOOL [C difficile Antigen & Toxins] Urgent
ROXANE Source: Feces/Stool
Specimen Description:
Stool Culture Urgent
ROXANE Source: Feces/Stool
Specimen Description:
Pantoprazole [Protonix IV] 40 mg IV NOW STA
09/21/24 17:47
Electrocardiogram (*1) Urgent
Reason for Study: Abdominal Pain
EKG- Treatment ONCE
Obstruct Series W/PA Chest [CR Obstruct Series W/pa Chest] Urgent
Comment:
Reason For Exam: vomiting
09/21/24 17:54
Troponin I Urgent
Influenza A+B Rapid Molecular Urgent
ROXANE Source: Nasal Swab
Specimen Description:
Abnormal Lab Results
09/21/24
17:08
RBC 5.44 H 10^6/uL
(4.20-5.40)
MCV 80.9 L fL
(81.0-99.0)
MCH 26.5 L pg
(27.0-31.0)
MCHC 32.7 L g/dL
(33.0-37.0)
RDW 14.6 H %
(11.5-14.5)
Absolute Neuts (auto) 6.8 H 10^3/uL
(1.4-6.5)
Absolute Lymphs (auto) 0.3 L 10^3/uL
(1.2-3.4)
Neutrophils % 92.8 H %
(42.2-75.2)
Lymphocytes % 3.4 L %
(20.5-51.1)
Carbon Dioxide 20 L mmol/L
(22-30)
BUN 27 H mg/dl
(7-17)
Glucose 161 H mg/dl
(70-99)
AST 38 H U/L
(14-36)
09/21/24 17:08
03/16/25 17:08
Vital Signs
Initial and Last Documented VS:
Initial Vital Signs
Temp Pulse Resp BP Pulse Ox
98.4 F 84 22 125/77 95
09/21/24 16:56 09/21/24 16:56 09/21/24 16:56 09/21/24 16:56 09/21/24 16:56
Last Documented Vital Signs
Temp Pulse Resp BP Pulse Ox
98.4 F 75 22 125/77 94
09/21/24 16:56 09/21/24 18:00 09/21/24 18:00 09/21/24 16:57 09/21/24 18:00
MDM/Problems Addressed
Differential Diagnosis Includes:
Recurrent diarrhea now with vomiting nontoxic appearing perhaps infectious perhaps inflammatory autoimmune
MDM/Problems Addressed:
Nausea vomiting diarrhea acute on chronic
*Radiology
Radiology exam reviewed: preliminary read by ED provider
*Pulse Oximetry
Patient hypoxic: no
*EKG
Interpreted by ED Provider?: Yes
Interpretation: normal
Comparison EKG: no comparison EKG present
Heart Rate: 78
Rate: normal
Rhythm: sinus
Ischemia: no ischemia
*Boiler Erector Interpretation
Rate: normal
Interpretation: normal
Heart Rate: 78
Rhythm: sinus
*Critical Care Note
Total Time (30-74mins, 75-104mins- exclusive of procedures): Not Applicable
Update Note
Update Note:
7:15 PM update patient feeling better workup negative of note she does have an appointment with GI tomorrow
ED Attending Note
-
Portions of this chart may have been created with voice recognition software.� Occasional wrong word or��sound alike� substitutions may have occurred due to the inherent limitations of voice recognition software.
Discharge Plan
Departure
Patient Disposition: Home (Routine Discharge)
Date of Disposition: 09/21/24
Time of Disposition: 19:16
Patient with high blood pressure during this ER visit?: Yes
Condition: Good
Discharge Problem:
Vomiting
Instructions: Evangeline Diet, Nausea and Vomiting, Adult (DC)
Prescriptions:
New
ondansetron 4 mg tablet,disintegrating
4 mg PO TID PRN (Reason: nausea and vomiting) Qty: 20 0RF
No Action
levothyroxine 50 MCG tablet
50 mcg PO DAILY
simvastatin 20 MG tablet
20 mg PO DAILY
omeprazole 40 mg Capsule,Delayed Release(Dr/Ec)
40 mg PO DAILY
escitalopram oxalate 20 mg Tablet
20 mg PO QPM
losartan 50 mg Tablet
50 mg PO DAILY
oxybutynin chloride 10 mg Tablet Extended Release 24hr
10 mg PO QPM
buspirone 7.5 mg Tablet
7.5 mg PO BID
mupirocin 2 % ointment
1 applic topical BID Qty: 1 0RF
Patient Comments:
started treatment sunday12/22/23 and completed BID, last took at home 12/25/23 in am
ferrous sulfate 325 mg (65 mg iron) Tablet,Delayed Release (Dr/Ec)
325 mg PO DAILY
acetaminophen [Pain Relief ES (acetaminophen)] 500 mg tablet
1,000 mg PO QID Qty: 0 0RF
doxycycline hyclate 100 mg capsule
100 mg PO BID Qty: 10 0RF
Rx Instructions:
Take with probiotic
aspirin 325 mg tablet
325 mg PO DAILY Qty: 1 0RF
Rx Instructions:
Take with food
meloxicam 15 mg tablet
15 mg PO DAILY Qty: 14 0RF
Rx Instructions:
take with food
post-op
dexamethasone 4 mg tablet
4 mg PO BID Qty: 6 0RF
Rx Instructions:
take with food
post-op use only
docusate sodium [Colace] 100 mg capsule
100 mg PO BID Qty: 1 0RF
gabapentin 300 mg capsule
300 mg PO HS Qty: 10 0RF
Saccharomyces boulardii [Florastor] 250 mg capsule
250 mg PO BID Qty: 1 0RF
magnesium hydroxide [Milk of Magnesia] 400 mg/5 mL suspension
30 ml PO HS PRN (Reason: Constipation) Qty: 1 0RF
oxycodone 5 mg tablet
5 mg PO Q6H PRN (Reason: 1 tab moderate pain, 2 tabs severe pain) Qty: 30 0RF
Rx Instructions:
Ongoing therapy
acetaminophen [Tylenol] 325 mg capsule
650 mg PO QID Qty: 2 0RF
ergocalciferol (vitamin D2) 50 mcg (2,000 unit) capsule
50 mcg PO WEEKLY Qty: 20 0RF
Eliquis 5 mg tablet
5 mg PO BID 30 Days Qty: 60 0RF
metoprolol succinate [Toprol XL] 50 mg tablet extended release 24 hr
50 mg PO DAILY Qty: 30 0RF
Interventions
Interventions:
*Risk Screen - Suicide Last Done: 09/21/24 16:59
*General Assessment Last Done: 09/21/24 16:59
*Neglect/Abuse Screening Last Done: 09/21/24 16:59
*ED- Fall Risk Assessment Last Done: 09/21/24 16:59
*ED COVID-19 Vaccine History Last Done: 09/21/24 16:59
Discharge Date and Time
Print Language: UPPER SORBIAN
[2024-09-21] MEDS: PROTONIX IV 40 MG IV (17:55)
[2024-09-21 18:30] LABS: Troponin I < 0.012 ng/ml
[2024-09-21] MEDS: ZOFRAN 4 MG IV (19:41)
[2024-09-21] MEDS: TYLENOL 1000 MG PO (19:41)
[2024-09-21 19:56] VITALS: BP 150/84
== END 2024-09-21 20:15 | disposition home or self-care (01) ==
LOC: EMR 16:52
PROVIDERS: Emergency Medicine; EMERGENCY PHYSICIAN Emergency Medicine; FAMILY PHYSICIAN Nurse Practitioner
DX: R11.2 Nausea with vomiting, unspecified (principal); R19.7 Diarrhea, unspecified
CPT/HCPCS: 99285; 96374; 96375; 74022; 80053; 83690; 84484; 85025; 87502; 93005

== ENCOUNTER → 2024-12-31 07:23 | Outpatient (REF) | payer MEDICARE, OTHER, SELFPAY | LOC: PAVMRI 07:23 | PROVIDERS: ATTENDING PHYSICIAN Physician Assistant; FAMILY PHYSICIAN Internal Medicine | DX: M54.16 Radiculopathy, lumbar region (principal) | CPT/HCPCS: 72148; 76014 ==

== ENCOUNTER → 2025-01-16 11:43 | Outpatient (REF) | payer MEDICARE, OTHER, SELFPAY | LOC: HWCARD 11:43 | PROVIDERS: ATTENDING PHYSICIAN Physical Medicine & Rehabilitation; FAMILY PHYSICIAN Nurse Practitioner | DX: Z01.818 Encounter for other preprocedural examination (principal) | CPT/HCPCS: 93005 ==

== ENCOUNTER → 2025-02-11 10:03 | Outpatient (REF) | payer MEDICARE, OTHER, SELFPAY ==
[2025-02-11 12:39] LABS: Hematocrit 40.7 % (37.0-47.0); Hemoglobin 13.0 g/dL (12.0-16.0); Mean Corp Hgb Conc. 31.9 g/dL (33.0-37.0); Mean Corpuscular Volume 85.5 fL (81.0-99.0); Nucleated Red Blood Cells % 0 %; Platelet Count 286 10^3/uL (130-400); Red Cell Dist. Width 13.7 % (11.5-14.5)
[2025-02-11 13:27] LABS: Free T3 2.96 pg/ml (2.77-5.27)
[2025-02-11 13:40] LABS: TSH 4.31 uIU/ml (0.47-4.68)
[2025-02-11 13:44] LABS: Ferritin 57.8 ng/ml (11.1-264.0)
[2025-02-11 15:54] LABS: ALT (SGPT) 66 U/L (0-35); AST (SGOT) 49 U/L (14-36); Albumin 4.1 g/dl (3.5-5.0); Alkaline Phosphatase 128 U/L (38-126); Blood Urea Nitrogen 20 mg/dl (7-17); Calcium 9.5 mg/dl (8.4-10.2); Carbon Dioxide 26 mmol/L (22-30); Chloride 105 mmol/L (98-107); Glucose 100 mg/dl (70-99); HDL Cholesterol 65 mg/dl; LDL Cholesterol, Calculated 92 mg/dl; Potassium 4.8 mmol/L (3.5-5.1); Sodium 138 mmol/L (135-145); Total Protein 6.9 g/dl (6.3-8.2); Very Low Density Lipoprotein 20 mg/dl (0-30); eGFR > 60.00
== END ==
LOC: HWLAB 10:03
PROVIDERS: ATTENDING PHYSICIAN Nurse Practitioner
DX: K42.9 Umbilical hernia without obstruction or gangrene (principal); K44.9 Diaphragmatic hernia without obstruction or gangrene; K52.9 Noninfective gastroenteritis and colitis, unspecified; I48.0 Paroxysmal atrial fibrillation; E78.5 Hyperlipidemia, unspecified; E03.9 Hypothyroidism, unspecified; I10 Essential (primary) hypertension
CPT/HCPCS: 36415; 80053; 80061; 82728; 84436; 84439; 84443; 84481; 85025

== ENCOUNTER → 2025-02-13 15:59 | Outpatient (REF) | payer MEDICARE, OTHER, SELFPAY | LOC: RAD 15:59 | PROVIDERS: ATTENDING PHYSICIAN Nurse Practitioner | DX: K42.9 Umbilical hernia without obstruction or gangrene (principal) | CPT/HCPCS: 74177; Q9967 ==

== ENCOUNTER → 2025-03-10 10:21 | Outpatient (REF) | payer MEDICARE, OTHER, SELFPAY ==
[2025-03-10 13:22] LABS: Hepatitis B Surface Antigen Negative (Negative)
[2025-03-10 13:40] LABS: Hepatitis A Antibody, Total Negative (Negative); Hepatitis C Antibody Negative (Negative)
[2025-03-11 12:33] LABS: tTG IgA Antibody 5.4 EU/ml (0-19); tTG IgG Antibody 13.8 EU/ml (0-19)
[2025-03-12 02:06] LABS: ANA, IgG Reflex to HEp-2 None Detected (None Detected)
[2025-03-12 02:25] LABS: Mitochondrial M2 Ab, IgG 2.0 Units (0.0-24.9)
[2025-03-12 22:44] LABS: LKM-1 Ab (IgG) 1.0 U (0.0-24.9)
== END ==
LOC: HWLAB 10:21
PROVIDERS: ATTENDING PHYSICIAN Internal Medicine Gastroenterology; FAMILY PHYSICIAN Nurse Practitioner
DX: K52.9 Noninfective gastroenteritis and colitis, unspecified (principal); R79.89 Other specified abnormal findings of blood chemistry
CPT/HCPCS: 36415; 82103; 82390; 82784; 83516; 86015; 86038; 86231; 86376; 86381; 86704; 86706; 86708; 86803; 87340

== ENCOUNTER → 2025-03-11 13:47 | Outpatient (REF) | payer MEDICARE, OTHER, SELFPAY | LOC: HWLAB 13:47 | PROVIDERS: ATTENDING PHYSICIAN Internal Medicine Gastroenterology; FAMILY PHYSICIAN Nurse Practitioner | DX: K52.9 Noninfective gastroenteritis and colitis, unspecified (principal) | CPT/HCPCS: 82653; 82705; 83993 ==

== ENCOUNTER → 2025-03-16 08:42 | Outpatient (REF) | payer MEDICARE, OTHER, SELFPAY | LOC: HWRAD 08:42 | PROVIDERS: ATTENDING PHYSICIAN Internal Medicine Gastroenterology; FAMILY PHYSICIAN Nurse Practitioner | DX: R79.89 Other specified abnormal findings of blood chemistry (principal) | CPT/HCPCS: 76700 ==

== ENCOUNTER → 2025-05-18 10:41 | Outpatient (REF) | payer MEDICARE, OTHER, SELFPAY ==
[2025-05-18 12:34] LABS: Hematocrit 42.2 % (37.0-47.0); Hemoglobin 13.2 g/dL (12.0-16.0); Mean Corp Hgb Conc. 31.3 g/dL (33.0-37.0); Mean Corpuscular Volume 88.7 fL (81.0-99.0); Nucleated Red Blood Cells % 0 %; Platelet Count 254 10^3/uL (130-400); Red Cell Dist. Width 14.1 % (11.5-14.5)
[2025-05-18 13:10] LABS: ALT (SGPT) 36 U/L (0-35); AST (SGOT) 29 U/L (14-36); Albumin 4.1 g/dl (3.5-5.0); Alkaline Phosphatase 103 U/L (38-126); Blood Urea Nitrogen 20 mg/dl (7-17); Calcium 9.5 mg/dl (8.4-10.2); Carbon Dioxide 28 mmol/L (22-30); Chloride 102 mmol/L (98-107); Glucose 93 mg/dl (70-99); Magnesium 2.2 mg/dl (1.6-2.3); Potassium 4.1 mmol/L (3.5-5.1); Sodium 135 mmol/L (135-145); Total Protein 7.0 g/dl (6.3-8.2); Uric Acid 4.7 mg/dl (2.5-6.2); eGFR > 60.00
[2025-05-18 13:14] LABS: Glycohemoglobin (HgbA1c) 5.7 % (4.0-5.9)
[2025-05-18 13:33] LABS: TSH 2.52 uIU/ml (0.47-4.68)
[2025-05-20 18:57] LABS: Lipoprotein a (Lp a) 84 mg/dL (<=29)
== END ==
LOC: HWLAB 10:41
PROVIDERS: ATTENDING PHYSICIAN Physician Assistant; FAMILY PHYSICIAN Nurse Practitioner
DX: E78.00 Pure hypercholesterolemia, unspecified (principal); R73.01 Impaired fasting glucose; E88.810 Metabolic syndrome; E03.9 Hypothyroidism, unspecified; R60.0 Localized edema; K21.9 Gastro-esophageal reflux disease without esophagitis; R94.5 Abnormal results of liver function studies; D64.89 Other specified anemias
CPT/HCPCS: 36415; 80053; 80061; 83036; 83695; 83704; 83735; 84439; 84443; 84550; 85025